=== PATIENT | male | born 1985 | race Caucasian/White ===

== ENCOUNTER → 2025-02-28 20:04 | Outpatient (REF) | payer OTHER, SELFPAY | LOC: MRI 3T 20:04 | PROVIDERS: ATTENDING PHYSICIAN Physician Assistant Surgical; FAMILY PHYSICIAN Internal Medicine | DX: M54.12 Radiculopathy, cervical region (principal); M25.511 Pain in right shoulder | CPT/HCPCS: 72141; 73221 ==